=== PATIENT | male | born 1995 | race African-American/Black ===

== ENCOUNTER 2020-11-16 03:20 | Emergency (ER) | payer OTHER ==
--- NOTE | 2020-11-16 03:46 | ER ---
Nurse's Notes [facility] Name: Ameya Valentino Age: 25 yrs Sex: Male : 1995 Arrival Date: 11/16/2020 Time: 03:24 Bed 20 Private MD: Diagnosis: Acute lymphadenitis of face, head and neck Presentation: 11/16 03:30 Chief complaint: Chief complaint: Patient states: my lymph nodes in my neck have been jm8 swollen and painful since . I've been unable to eat or drink since . Coronavirus screen: Client denies travel out of the [place] in the last 14 days. At this time, the client does not indicate any symptoms associated with coronavirus-19. Ebola Screen: Patient negative for fever greater than or equal to 101.5 degrees Fahrenheit, and additional compatible Ebola Virus Disease symptoms Patient denies exposure to infectious person. Patient denies travel to an Ebola-affected area in the 21 days before illness onset. Initial Sepsis Screen: Does the patient meet any 2 criteria? No. Patient's initial sepsis screen is negative. Does the patient have a suspected source of infection? No. Patient's initial sepsis screen is negative. Risk Assessment: Do you want to hurt yourself or someone else? Patient reports no desire to harm self or others. Onset of symptoms was November 10, 2020. 03:30 Method Of Arrival: Law Enforcement: [place] [employer] jm8 03:30 Acuity: NICOLE 4 jm8 Triage Assessment: 03:35 General: Appears in no apparent distress. comfortable, Behavior is calm, cooperative, jm8 appropriate for age. Pain: Complains of pain in neck Pain currently is 10 out of 10 on a pain scale. EENT: Throat has enlarged tonsils bilaterally Reports swollen lymph nodes. EENT:. Neuro: No deficits noted. Neuro: Level of Consciousness is awake, alert, obeys commands, Oriented to person, place, time. Cardiovascular: No deficits noted. Respiratory: No deficits noted. Airway is patent Trachea midline Respiratory effort is even, unlabored, Respiratory pattern is regular, symmetrical. GI: No deficits noted. No signs and/or symptoms were reported involving the gastrointestinal system. : No deficits noted. No signs and/or symptoms were reported regarding the genitourinary system. Derm: No deficits noted. No signs and/or symptoms reported regarding the dermatologic system. Musculoskeletal: No deficits noted. No signs and/or symptoms reported regarding the musculoskeletal system. Historical: - Allergies: 03:35 No Known Allergies; jm8 - Home Meds: 03:35 None [Active]; jm8 - PMHx: 03:35 None; jm8 - PSHx: 03:35 None; jm8 - Immunization history:: Adult Immunizations up to date. - Social history:: Smoking status: Patient denies any tobacco usage or history of. - Family history:: not pertinent. - Hospitalizations: : No recent hospitalization is reported. Screenin:35 Abuse screen: Denies threats or abuse. Denies injuries from another. Nutritional 8 screening: No deficits noted. Tuberculosis screening: No symptoms or risk factors identified. Fall Risk None identified. Assessment: 03:45 General: Appears in no apparent distress. comfortable, Behavior is calm, cooperative. jb4 Pain: Complains of pain in neck Pain does not radiate. Pain currently is 10 out of 10 on a pain scale. Neuro: Level of Consciousness is awake, alert, obeys commands, Oriented to person, place, time, situation. Cardiovascular: Patient's skin is warm and dry. Respiratory: Airway is patent Respiratory effort is even, unlabored, Respiratory pattern is regular, symmetrical. GI: No signs and/or symptoms were reported involving the gastrointestinal system. : No signs and/or symptoms were reported regarding the genitourinary system. EENT: No signs and/or symptoms were reported regarding the EENT system. Derm: Skin is intact, Skin is dry, Skin is normal, Skin temperature is warm. Musculoskeletal: Circulation, motion, and sensation intact. Range of motion: intact in all extremities. Vital Signs: 03:30 BP 142 / 93; Pulse 77; Resp 16; Temp 98.6; Pulse Ox 98% ; Weight 80.74 kg; Height 6 ft. jm8 1 in. (185.42 cm); Pain 10/10; 03:30 Body Mass Index 23.48 (80.74 kg, 185.42 cm) jm8 ED Course: 03:24 Patient arrived in ED. ar5 03:24 Triston Camarillo MD is Attending Physician. rn 03:26 Matthieu Serna RN is Primary Nurse. jb4 03:34 Triage completed. jm8 03:35 Patient has correct armband on for positive identification. Bed in low position. Call jm8 light in reach. Side rails up X2. Adult w/ patient. 03:37 Arm band placed on right wrist. jm8 04:08 No provider procedures requiring assistance completed. Patient did not have IV access jb4 during this emergency room visit. Administered Medications: 03:43 Drug: Decadron (dexamethasone) 10 mg Route: IM; Site: right deltoid; jb4 04:06 Follow up: Response: No adverse reaction 4 03:43 Drug: Clindamycin 900 mg {Note: Half given in left gluteus and right gluteus..} Route: jb4 IM; Site: right gluteus; 04:06 Follow up: Response: No adverse reaction jb4 Outcome: 03:45 Discharge ordered by . rn 04:08 Discharged to Law Enforcement jb4 04:08 Condition: stable 04:08 Discharge instructions given to patient, police, Instructed on discharge instructions, follow up and referral plans. medication usage, Demonstrated understanding of instructions, follow-up care, medications, Prescriptions given X 2. 04:09 Patient left the ED. jb4 Signatures: Triston Camarlilo MD MD rn Bryson, James RN RN jb4 Neeta Campos arJagjit Chacon, RN RN rei8
--- NOTE | 2020-11-16 03:46 | EDPHYS ---
Physician Documentation [facility] Name: Ameya Valentino Age: 25 yrs Sex: Male : 1995 Arrival Date: 11/16/2020 Time: 03:24 Bed 20 Private MD: ED Physician Triston Camarillo HPI: 11/16 03:38 This 25 yrs old Black Male presents to ER via Law Enforcement with complaints of neck rn pain and swelling. 03:38 The patient or guardian complains of pain, swelling. The symptoms are located on the rn neck. Onset: The symptoms/episode began/occurred 5 day(s) ago. Context: The neck injury/problem resulted from from unknown cause. Associated signs and symptoms: Pertinent positives: This patient does not have any pertinent positive signs or symptoms associated with neck pain. Pertinent negatives: fever, headache, bladder incontinence, bowel incontinence, vomiting, weakness. The pain does not radiate. Modifying factors: The symptoms are alleviated by OTC meds, the symptoms are aggravated by movement, pressure. Severity of symptoms: At their worst the symptoms were moderate, in the emergency department the symptoms are unchanged. The patient has not experienced similar symptoms in the past. The patient has not recently seen a physician. Reports approx 5 days of neck pain and swelling, + mild sore throat, no fever, taken to medical and given ibuprofen equivalent, reports feels like lymph nodes in neck are getting more swollen and painful. No trauma. No sob. + mild cough. . Historical: - Allergies: 03:35 No Known Allergies; jm8 - Home Meds: 03:35 None [Active]; jm8 - PMHx: 03:35 None; jm8 - PSHx: 03:35 None; jm8 - Immunization history:: Adult Immunizations up to date. - Social history:: Smoking status: Patient denies any tobacco usage or history of. - Family history:: not pertinent. - Hospitalizations: : No recent hospitalization is reported. ROS: 03:41 Constitutional: Negative for fever, chills, and weight loss, Eyes: Negative for injury, rn pain, redness, and discharge, ENT: + sore throat Neck: + neck pain and swollen lymph nodes Cardiovascular: Negative for chest pain, palpitations, and edema, Respiratory: Negative for shortness of breath, wheezing, and pleuritic chest pain, Abdomen/GI: Negative for abdominal pain Back: Negative for injury and pain, MS/Extremity: Negative for injury and deformity, Skin: Negative for injury, rash, and discoloration, Neuro: Negative for numbness, tingling, and seizure. Exam: 03:41 Constitutional: This is a well developed, well nourished patient who is awake, alert, rn and in no acute distress. Ambulatory to room without difficulty Head/Face: Normocephalic, atraumatic. Eyes: Pupils equal round and reactive to light, extra-ocular motions intact. Lids and lashes normal. Conjunctiva and sclera are non-icteric and not injected. Cornea within normal limits. Periorbital areas with no swelling, redness, or edema. ENT: MMM, no oral swelling, no exudate, no stridor, uvula midline, no [employer]ER Neck: + tender bilateral cervical lymph nodes, no meningismus. Cardiovascular: Regular rate and rhythm. No pulse deficits. Respiratory: No increased work of breathing, no retractions or nasal flaring. Skin: Warm, dry MS/ Extremity: Pulses equal, no cyanosis. Neuro: Awake and alert, GCS 15 Vital Signs: 03:30 BP 142 / 93; Pulse 77; Resp 16; Temp 98.6; Pulse Ox 98% ; Weight 80.74 kg; Height 6 ft. jm8 1 in. (185.42 cm); Pain 10/10; 03:30 Body Mass Index 23.48 (80.74 kg, 185.42 cm) jm8 MDM: 03:24 Patient medically screened. rn 03:41 Differential diagnosis: lymphadenitis, pharyngitis, larygnitis. Data reviewed: vital rn signs, nurses notes, and as a result, I will discharge patient. Counseling: I had a detailed discussion with the patient and/or guardian regarding: the historical points, exam findings, and any diagnostic results supporting the discharge/admit diagnosis, the need for outpatient follow up, to return to the emergency department if symptoms worsen or persist or if there are any questions or concerns that arise at home. Response to treatment: the patient's symptoms have mildly improved after treatment, and as a result, I will discharge patient. Special discussion: I discussed with the patient/guardian in detail that at this point there is no indication for admission to the hospital. It is understood, however, that if the symptoms persist or worsen the patient needs to return immediately for re-evaluation. Administered Medications: 03:43 Drug: Decadron (dexamethasone) 10 mg Route: IM; Site: right deltoid; jb4 04:06 Follow up: Response: No adverse reaction [facility] 03:43 Drug: Clindamycin 900 mg {Note: Half given in left gluteus and right gluteus..} Route: jb4 IM; Site: right gluteus; 04:06 Follow up: Response: No adverse reaction 4 Disposition: 11/16/20 03:45 Discharged to Home. Impression: Acute lymphadenitis of face, head and neck. - Condition is Stable. - Discharge Instructions: Lymphadenopathy. - Prescriptions for Clindamycin HCl 300 mg Oral Capsule - take 1 capsule by ORAL route every 6 hours for 10 days; 40 capsule. Zithromax Z- [place] 250 mg Oral Tablet - take 1 tablet by ORAL route as directed for 5 days Day 1 - take two (2) tablets one time. Day 2, 3, 4 , 5 take one (1) tablet once daily.; 6 tablet. - Medication Reconciliation Form, Thank You Letter, Antibiotic Education, Prescription Opioid Use form. - Follow up: Private Physician; When: As needed; Reason: Recheck today's complaints, Re-evaluation by your physician. - Problem is new. - Symptoms have improved. Signatures: Triston Camarillo MD MD rn Bryson, James, RN RN jb4 Jagjit Frye RN RN jm8 Corrections: (The following items were deleted from the chart) 04:09 03:45 11/16/2020 03:45 Discharged to Home. Impression: Acute lymphadenitis of face, jb4 head and neck. Condition is Stable. Forms are Medication Reconciliation Form, Thank You Letter, Antibiotic Education, Prescription Opioid Use. Follow up: Private Physician; When: As needed; Reason: Recheck today's complaints, Re-evaluation by your physician. Problem is new. Symptoms have improved. rn
[2020-11-16] MEDS ORDERED: dexAMETHasone 10 MG/ML VIAL ONE (03:49)
[2020-11-16] MEDS ORDERED: CLINDAMYCIN IV 150 MG/ML (4 mL) VIAL ONE (03:49)
[2020-11-16 04:13] VITALS: BP 142/93; TEMP 98.6; O2SAT 98
== END 2020-11-16 04:09 | disposition home or self-care (01) ==
LOC: ER 03:20
DX: L04.0 Acute lymphadenitis of face, head and neck (principal)
CPT/HCPCS: 96372; 99283; J1100; S0077